=== PATIENT | male | born 1970 | race Caucasian/White ===

== ENCOUNTER 2019-05-30 15:00 | Emergency (ER) | payer OTHER ==
[2019-05-30] MEDS ORDERED: fentaNYL 100 MCG/2 ML SDV IVPUSH PRN (15:12)
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
[2019-05-30 15:25] LABS: CHLORIDE,CL 102 mEq/L (98-106); SODIUM,NA 138 mEq/L (136-145)
[2019-05-30] MEDS ORDERED: Iopamidol 755 Mg/ML 100 ML Bottle IVPUSH ONE (15:29)
== END 2019-05-30 17:10 | disposition home or self-care (01) ==
LOC: CC.ED 15:00
DX: S22.32XA Fracture of one rib, left side, initial encounter for closed fracture (principal); S62.502A Fracture of unspecified phalanx of left thumb, initial encounter for closed fracture; S80.812A Abrasion, left lower leg, initial encounter; S80.811A Abrasion, right lower leg, initial encounter; V89.2XXA Person injured in unspecified motor-vehicle accident, traffic, initial encounter
CPT/HCPCS: 36415; 71260; 72125; 72170; 73100; 73140; 80053; 82550; 83615; 84484; 85025; 85610; 85730; 93005; 96374; 99285; J3010